=== PATIENT | male | born 1985 | race Two or more races ===

== ENCOUNTER 2018-02-28 18:50 | Emergency (ER) | payer OTHER ==
[2018-02-28 20:10] LABS: BILIRUBIN,URINE NEGATIVE (NEG); CLARITY,URINE CLOUDY; COLOR,URINE YELLOW; GLUCOSE,URINE NEGATIVE (NEG); NITRITE,URINE NEGATIVE (NEG); PH,URINE 7.5; PROTEIN,URINE NEGATIVE (NEG-TRACE)
[2018-02-28 20:14] LABS: AMORPHOUS SEDIMENT,UR PRESENT /HPF; BACTERIA,URINE 0 /HPF (0-FEW); RBC,URINE 0 /HPF (0-2); WBC,URINE 0 /HPF (0-4)
== END 2018-02-28 20:49 | disposition home or self-care (01) ==
LOC: ER 20:49
DX: M54.5 Low back pain (principal)
CPT/HCPCS: 74176; 81001; 99285-25